=== PATIENT | female | born 1955 | race Two or more races ===

== ENCOUNTER 2020-06-01 08:41 | Outpatient (CLI) | payer OTHER | END 2020-06-01 09:01 | disposition home or self-care (01) | LOC: RAD 08:41 | PROVIDERS: ATTEND Orthopaedic Surgery | DX: M25.571 Pain in right ankle and joints of right foot (principal) ==

== ENCOUNTER 2020-06-08 08:55 | Outpatient (CLI) | payer OTHER | END 2020-06-08 08:58 | disposition home or self-care (01) | LOC: NUCLEAR 08:55 | PROVIDERS: ATTEND Orthopaedic Surgery | DX: I87.2 Venous insufficiency (chronic) (peripheral) (principal); I70.213 Atherosclerosis of native arteries of extremities with intermittent claudication, bilateral legs ==

== ENCOUNTER 2020-06-09 08:53 | Outpatient (CLI) | payer OTHER | END 2020-06-09 08:54 | disposition home or self-care (01) | LOC: NUCLEAR 08:53 | PROVIDERS: ATTEND Orthopaedic Surgery | DX: I73.89 Other specified peripheral vascular diseases (principal); M79.661 Pain in right lower leg; M79.662 Pain in left lower leg ==

== ENCOUNTER → 2020-06-21 09:06 | Outpatient (CLI) | payer OTHER | END | disposition home or self-care (01) | LOC: LAB 09:06 | PROVIDERS: ATTEND Orthopaedic Surgery | DX: D64.89 Other specified anemias (principal); E88.89 Other specified metabolic disorders; E83.42 Hypomagnesemia; D68.8 Other specified coagulation defects; B95.62 Methicillin resistant Staphylococcus aureus infection as the cause of diseases classified elsewhere; N39.0 Urinary tract infection, site not specified; E03.8 Other specified hypothyroidism; E11.9 Type 2 diabetes mellitus without complications; Z76.89 Persons encountering health services in other specified circumstances; I49.8 Other specified cardiac arrhythmias; I10 Essential (primary) hypertension ==

== ENCOUNTER 2020-06-28 09:56 | Outpatient (CLI) | payer OTHER | END 2020-06-28 10:01 | disposition home or self-care (01) | LOC: LAB 09:56 | PROVIDERS: ATTEND Orthopaedic Surgery | DX: Z03.818 Encounter for observation for suspected exposure to other biological agents ruled out (principal) ==

== ENCOUNTER 2020-09-19 09:06 | Outpatient (CLI) | payer OTHER ==
[2020-10-03] MEDS ORDERED: CRESTOR5 MG PO (10:22)
[2020-10-03] MEDS ORDERED: GLIPIZIDE XL10 MG PO (10:22)
== END 2020-09-19 15:00 | disposition home or self-care (01) ==
LOC: LAB 09:06
PROVIDERS: ATTEND Orthopaedic Surgery
DX: D68.8 Other specified coagulation defects (principal); N39.0 Urinary tract infection, site not specified

== ENCOUNTER → 2020-09-20 09:15 | Outpatient (CLI) | payer OTHER ==
[~2020-09-20 09:15] MED LIST: CRESTOR5 MG PO; GLIPIZIDE XL10 MG PO
== END | disposition home or self-care (01) ==
LOC: LAB 09:15
PROVIDERS: ATTEND Family Medicine
DX: E11.9 Type 2 diabetes mellitus without complications (principal); N63.11 Unspecified lump in the right breast, upper outer quadrant; E78.2 Mixed hyperlipidemia

== ENCOUNTER 2020-10-10 05:00 | Inpatient (IN) | payer OTHER ==
[~2020-10-10] VITALS: Ht 172.7 cm; Wt 112.9 kg
== END 2020-10-12 13:05 | disposition home or self-care (01) | DRG 502 ==
LOC: CIR.AMB 05:00 → SURH 14:26 → O/R 14:26 → SURH 15:04
PROVIDERS: ADMIT Orthopaedic Surgery; ATTEND Orthopaedic Surgery
PROC: 0LXS0ZZ Transfer Right Ankle Tendon, Open Approach (ICD-10-PCS; 2020-10-10)
PROC: 0MQQ0ZZ Repair Right Ankle Bursa and Ligament, Open Approach (ICD-10-PCS; 2020-10-10)
PROC: 3E0F7SF Introduction of Other Gas into Respiratory Tract, Via Natural or Artificial Opening (ICD-10-PCS; 2020-10-10)
PROC: 0Q8L0ZZ Division of Right Tarsal, Open Approach (ICD-10-PCS; principal; 2020-10-10 07:00)
DX: M21.6X1 Other acquired deformities of right foot (principal); E11.9 Type 2 diabetes mellitus without complications; Z20.822 Contact with and (suspected) exposure to COVID-19

== ENCOUNTER 2021-03-21 08:46 | Outpatient (CLI) | payer OTHER | END 2021-03-21 08:56 | disposition home or self-care (01) | LOC: RAD 08:46 | PROVIDERS: ATTEND Orthopaedic Surgery | DX: M20.11 Hallux valgus (acquired), right foot (principal); M20.41 Other hammer toe(s) (acquired), right foot ==

== ENCOUNTER 2021-06-27 08:45 | Outpatient (CLI) | payer OTHER | END 2021-06-27 09:01 | disposition home or self-care (01) | LOC: RAD 08:45 | PROVIDERS: ATTEND Orthopaedic Surgery | DX: M20.11 Hallux valgus (acquired), right foot (principal); M20.41 Other hammer toe(s) (acquired), right foot; S92.054 Nondisplaced other extraarticular fracture of right calcaneus ==

== ENCOUNTER 2024-03-20 08:09 | Emergency (ER) | payer OTHER ==
[~2024-03-20] VITALS: Ht 152.4 cm; Wt 127.0 kg
[2024-03-20] MEDS ORDERED: METOCLOPRAMIDE HCL 5 MG/ML VIAL IM ONE (08:45)
[2024-03-20 09:00] LABS: HEMATOCRIT 36.7 % (36.0-45.00); HEMOGLOBIN 12.5 g/dL (12.0-15.00); MEAN CELL VOLUME 86.9 fL (80.00-100.00); MEAN CORPUSCULAR HEMOGLOBIN 29.6 pg (27.00-32.0); MEAN CORPUSCULAR HGB CONC 34.1 g/dl (32.0-36.0); PLATELET COUNT 154 K/uL (150-450); RED BLOOD COUNT 4.22 M/uL (4.00-6.00); RED CELL DISTRIBUTION WIDTH 13.5 % (11.5-14.5)
[2024-03-20 09:43] LABS: ALBUMIN 3.3 gm/dL (3.4-5.0); BILIRUBIN TOTAL 0.73 mg/dL (0.3-1.2); CALCIUM 8.9 mg/dL (8.5-10.1); CREATININE SERUM 0.94 mg/dL (0.55-1.02); GFR 59.58; GLOBULINA 3.6 G/DL (2.4-3.5); POTASSIUM 3.93 mEq/L (3.5-5.1); TOTAL PROTEIN 6.9 gm/dL (6.4-8.2)
== END 2024-03-20 12:04 | disposition home or self-care (01) ==
LOC: ER 08:11
PROVIDERS: General Practice
DX: R51.9 Headache, unspecified (principal); R11.10 Vomiting, unspecified; E11.9 Type 2 diabetes mellitus without complications; Z79.84 Long term (current) use of oral hypoglycemic drugs; I10 Essential (primary) hypertension
CPT/HCPCS: 36415; 70450; 93005; 96372; 99284; J2765